=== PATIENT | male | born 1955 | race African-American/Black ===

== ENCOUNTER 2018-12-18 15:39 | Inpatient (IN) | payer OTHER ==
[2018-12-18 17:12] VITALS: BMI 27.8
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
[2018-12-18] MEDS ORDERED: IBUPROFEN 400 MG TABLET (FP) PO PRN (19:19)
[2018-12-18] MEDS ORDERED: hydrOXYzine PAMOATE 25 MG CAPSULE (FP) PO PRN (19:19)
[2018-12-18] MEDS ORDERED: diazePAM 5 MG TABLET PO PRN (19:19)
[2018-12-18] MEDS ORDERED: ACETAMINOPHEN 325 MG TABLET (FP) PO PRN ×2 (19:19)
[2018-12-18] MEDS ORDERED: MELATONIN 5 MG TABLETS PO PRN (19:19)
[2018-12-18] MEDS ORDERED: BISMUTH SUBSALICYLATE 524 MG/30 ML UD PO PRN (19:19)
[2018-12-18] MEDS ORDERED: MAG HYDROX/AL HYDROX/SIMETH 30 ML UNIT-DOSE CUP PO PRN (19:19)
[2018-12-18] MEDS ORDERED: MAGNESIUM CITRATE 300 ML BOTTLE PO PRN (19:19)
[2018-12-18] MEDS ORDERED: MENTHOL/PHENOL 1 EACH UD MM PRN (19:19)
[2018-12-18] MEDS ORDERED: MAGNESIUM HYDROX 2400MG/30ML ORAL SUSPENSION 30 ML CUP PO PRN (19:19)
[2018-12-18] MEDS: diazePAM 5 MG TABLET PO SCH (22:49)
[2018-12-18] MEDS: THIAMINE HCL 100 MG TABLET (FP) PO SCH (22:49)
[2018-12-19] MEDS: diazePAM 5 MG TABLET PO SCH ×3 (06:24→23:10)
[2018-12-19] MEDS: PRENATAL VITAMINS W/ FOLIC ACID TABLET (FP) PO SCH (10:58)
[2018-12-19 11:41] LABS: HEMATOCRIT 46.8 % (35.4-49); MCH 29.2 pg (25.7-33.7); MCHC 32.1 g/dl (32.0-35.9); MEAN CELL VOLUME 90.8 fl (80-96); MEAN PLT VOLUME 10.1 fl (7.5-11.1); PLATELET COUNT 155 K/MM3 (134-434); RBC 5.16 M/mm3 (4.00-5.60); RDW 15.3 % (11.9-15.9); WHITE BLOOD COUNT 2.8 K/mm3 (4.0-10.0)
[2018-12-19 11:42] LABS: ALBUMIN 3.7 g/dl (3.4-5.0); BILIRUBIN,TOTAL 0.4 mg/dL (0.2-1); CALCIUM 8.6 mg/dL (8.5-10.1); CREATININE 1.3 mg/dL (0.55-1.3); TOT PROT 6.9 g/dl (6.4-8.2)
--- NOTE | 2018-12-19 15:12 | PN ---
S CIWA - CIWA Score Nausea/Vomitin-No Nausea/No Vomiting Muscle Tremors: None Anxiety: 2 Agitation: 1-Slight > Activity Paroxysmal Sweats: 3 Orientation: 0-Oriented Tacttile Disturbances: 0-None Auditory Disturbances: 3-Moderate Harsh/Frighten Visual Disturbances: 2-Mild Sensitivity Headache: 0-None Present CIWA-Ar Total Score: 11 BHS Progress Note (SOAP) Subjective: Fatigue, Anxious, Sweating. Objective: PATIENT A & O X 3, OBSERVED AMBULATING ON UNIT UNASSISTED. IN NO ACUTE DISTRESS. 12/19/18 15:11 Vital Signs Temperature 96.9 F L 12/19/18 10:24 Pulse Rate 71 12/19/18 10:24 Respiratory Rate 20 12/19/18 10:24 Blood Pressure 128/84 12/19/18 10:24 O2 Sat by Pulse Oximetry (%) Laboratory Tests 12/19/18 12/19/18 12/19/18 08:00 08:00 08:00 WBC 2.8 L RBC 5.16 Hgb 15.0 Hct 46.8 MCV 90.8 MCH 29.2 MCHC 32.1 RDW 15.3 D Plt Count 155 D MPV 10.1 Sodium 142 Potassium 4.0 Chloride 108 H Carbon Dioxide 25 Anion Gap 9 BUN 11 Creatinine 1.3 Est GFR (CKD-EPI)AfAm 66.83 Est GFR (CKD-EPI)NonAf 57.66 Random Glucose 128 H Calcium 8.6 Total Bilirubin 0.4 AST 24 ALT 26 Alkaline Phosphatase 46 Total Protein 6.9 Albumin 3.7 RPR Titer Nonreactive LABS NOTED. Assessment: 12/19/18 15:12 WITHDRAWAL SYMPTOMS. LEUKOPENIA. Plan: CONTINUE DETOX.
[2018-12-19] MEDS: NICOTINE POLACRILEX 2 MG GUM BUC PRN (18:55)
[2018-12-19] MEDS: THIAMINE HCL 100 MG TABLET (FP) PO SCH (23:10)
[2018-12-20] MEDS: diazePAM 5 MG TABLET PO SCH ×2 (10:42→22:04)
[2018-12-20] MEDS: NICOTINE POLACRILEX 2 MG GUM BUC PRN (10:43)
[2018-12-20] MEDS: PRENATAL VITAMINS W/ FOLIC ACID TABLET (FP) PO SCH (10:43)
[2018-12-20] MEDS ORDERED: cloNIDine HCL 0.1 MG TABLET PO PRN (11:46)
--- NOTE | 2018-12-20 11:51 | PN ---
[facility] CIWA - CIWA Score Nausea/Vomitin-No Nausea/No Vomiting Muscle Tremors: 2 Anxiety: 2 Agitation: 2 Paroxysmal Sweats: No Perspiration Orientation: 0-Oriented Tacttile Disturbances: 0-None Auditory Disturbances: 0-None Visual Disturbances: 0-None Headache: 1-Very Mild CIWA-Ar Total Score: 7 S Progress Note (SOAP) Subjective: feeling ok today social with peers in day room and hallway fluctuating bp denies taking anti hypertensant at home discuss alcohol related bp elevation encourage the patient monitoring bp at home and follow up with [facility] Objective: 12/20/18 11:51 Vital Signs Temperature 96.3 F L 12/20/18 09:43 Pulse Rate 66 12/20/18 09:43 Respiratory Rate 18 12/20/18 09:43 Blood Pressure 175/95 H 12/20/18 09:43 O2 Sat by Pulse Oximetry (%) Laboratory Last Values WBC 2.8 K/mm3 (4.0-10.0) L 12/19/18 08:00 RBC 5.16 M/mm3 (4.00-5.60) 12/19/18 08:00 Hgb 15.0 GM/dL (11.7-16.9) 12/19/18 08:00 Hct 46.8 % (35.4-49) 12/19/18 08:00 MCV 90.8 fl (80-96) 12/19/18 08:00 MCH 29.2 pg (25.7-33.7) 12/19/18 08:00 MCHC 32.1 g/dl (32.0-35.9) 12/19/18 08:00 RDW 15.3 % (11.9-15.9) D 12/19/18 08:00 Plt Count 155 K/MM3 (134-434) D 12/19/18 08:00 MPV 10.1 fl (7.5-11.1) 12/19/18 08:00 Sodium 142 mmol/L (136-145) 12/19/18 08:00 Potassium 4.0 mmol/L (3.5-5.1) 12/19/18 08:00 Chloride 108 mmol/L (98-107) H 12/19/18 08:00 Carbon Dioxide 25 mmol/L (21-32) 12/19/18 08:00 Anion Gap 9 MMOL/L (8-16) 12/19/18 08:00 BUN 11 mg/dL (7-18) 12/19/18 08:00 Creatinine 1.3 mg/dL (0.55-1.3) 12/19/18 08:00 Est GFR (CKD-EPI)AfAm 66.83 12/19/18 08:00 Est GFR (CKD-EPI)NonAf 57.66 12/19/18 08:00 Random Glucose 128 mg/dL (74-106) H 12/19/18 08:00 Calcium 8.6 mg/dL (8.5-10.1) 12/19/18 08:00 Total Bilirubin 0.4 mg/dL (0.2-1) 12/19/18 08:00 AST 24 U/L (15-37) 12/19/18 08:00 ALT 26 U/L (13-61) 12/19/18 08:00 Alkaline Phosphatase 46 U/L (45-117) 12/19/18 08:00 Total Protein 6.9 g/dl (6.4-8.2) 12/19/18 08:00 Albumin 3.7 g/dl (3.4-5.0) 12/19/18 08:00 RPR Titer Nonreactive (NONREACTIVE) 12/19/18 08:00 12/20/18 11:52 lab oted low wbc bp elevation Assessment: 12/20/18 11:52 alcohol withdrawal sx hypertension low wbc 12/20/18 11:55 Plan: continue detox report long history of wbc below normal patient agrees to consider hiv test
[2018-12-20] MEDS: amLODIPine BESYLATE 10 MG TABLET (FP) PO SCH (13:31)
[2018-12-20] MEDS: THIAMINE HCL 100 MG TABLET (FP) PO SCH (22:04)
[2018-12-21] MEDS ORDERED: diazePAM 5 MG TABLET PO SCH (06:00)
[2018-12-21 09:05] VITALS: BP 139/74; PULSE 87; TEMP 97.3
[2018-12-21] MEDS: amLODIPine BESYLATE 10 MG TABLET (FP) PO SCH (09:43)
[2018-12-21] MEDS: PRENATAL VITAMINS W/ FOLIC ACID TABLET (FP) PO SCH (09:43)
--- NOTE | 2018-12-21 15:32 | DS ---
[facility] Detox Discharge Summary Admission Date: 12/18/18 Discharge Date: 12/21/18 - History Present History: Alcohol Dependence Additional Comments: 63 years old male admitted on 12/18/18 for alcohol withdrawal stabilization [facility] Pertinent Past History: bring in medication list and lab report to follow up appointment - Physical Exam Results Vital Signs: Vital Signs Temperature 97.3 F L 12/21/18 09:04 Pulse Rate 87 12/21/18 09:04 Respiratory Rate 18 12/21/18 09:04 Blood Pressure 139/74 12/21/18 09:04 O2 Sat by Pulse Oximetry (%) Pertinent Admission Physical Exam Findings: alcohol withdrawal sx Laboratory Last Values WBC 2.8 K/mm3 (4.0-10.0) L 12/19/18 08:00 RBC 5.16 M/mm3 (4.00-5.60) 12/19/18 08:00 Hgb 15.0 GM/dL (11.7-16.9) 12/19/18 08:00 Hct 46.8 % (35.4-49) 12/19/18 08:00 MCV 90.8 fl (80-96) 12/19/18 08:00 MCH 29.2 pg (25.7-33.7) 12/19/18 08:00 MCHC 32.1 g/dl (32.0-35.9) 12/19/18 08:00 RDW 15.3 % (11.9-15.9) D 12/19/18 08:00 Plt Count 155 K/MM3 (134-434) D 12/19/18 08:00 MPV 10.1 fl (7.5-11.1) 12/19/18 08:00 Sodium 142 mmol/L (136-145) 12/19/18 08:00 Potassium 4.0 mmol/L (3.5-5.1) 12/19/18 08:00 Chloride 108 mmol/L (98-107) H 12/19/18 08:00 Carbon Dioxide 25 mmol/L (21-32) 12/19/18 08:00 Anion Gap 9 MMOL/L (8-16) 12/19/18 08:00 BUN 11 mg/dL (7-18) 12/19/18 08:00 Creatinine 1.3 mg/dL (0.55-1.3) 12/19/18 08:00 Est GFR (CKD-EPI)AfAm 66.83 12/19/18 08:00 Est GFR (CKD-EPI)NonAf 57.66 12/19/18 08:00 Random Glucose 128 mg/dL (74-106) H 12/19/18 08:00 Calcium 8.6 mg/dL (8.5-10.1) 12/19/18 08:00 Total Bilirubin 0.4 mg/dL (0.2-1) 12/19/18 08:00 AST 24 U/L (15-37) 12/19/18 08:00 ALT 26 U/L (13-61) 12/19/18 08:00 Alkaline Phosphatase 46 U/L (45-117) 12/19/18 08:00 Total Protein 6.9 g/dl (6.4-8.2) 12/19/18 08:00 Albumin 3.7 g/dl (3.4-5.0) 12/19/18 08:00 RPR Titer Nonreactive (NONREACTIVE) 12/19/18 08:00 lab noted long history of low wbc x 40 years - Treatment Hospital Course: Detox Protocol Followed, Detoxed Safely, Responded well, Discharged Condition Good, Rehab Referral Accepted Patient has Accepted a Rehab Referral to: [facility] - Medication Discharge Medications: Ambulatory Orders NK [No Known Home Medication] 12/18/18 - Diagnosis (1) Leukocyte disorder Status: Chronic (2) Alcohol dependence with uncomplicated withdrawal Status: Acute (3) Nicotine dependence Status: Acute Qualifiers: Nicotine product type: cigarettes Substance use status: in withdrawal Qualified Code(s): F17.213 - Nicotine dependence, cigarettes, with withdrawal - AMA Did Patient Leave Against Medical Advice: No
== END 2018-12-21 10:10 | disposition home or self-care (01) | DRG 774 ==
LOC: YASAS 15:39 → Y3N 19:48
PROVIDERS: ADMIT Surgery; ATTEND Surgery
PROC: HZ2ZZZZ Detoxification Services for Substance Abuse Treatment (ICD-10-PCS; principal; 2018-12-18)
DX: F10.230 Alcohol dependence with withdrawal, uncomplicated (principal); F14.20 Cocaine dependence, uncomplicated; F12.10 Cannabis abuse, uncomplicated; F17.213 Nicotine dependence, cigarettes, with withdrawal; I10 Essential (primary) hypertension; D72.819 Decreased white blood cell count, unspecified; Z59.0 Homelessness
CPT/HCPCS: 36415; 80053; 85027; 86593; J0735

== ENCOUNTER 2019-06-20 13:37 | Inpatient (IN) | payer OTHER ==
[2019-06-20 17:34] VITALS: BMI 29.2
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
[2019-06-20] MEDS ORDERED: IBUPROFEN 400 MG TABLET (FP) PO PRN (21:15)
[2019-06-20] MEDS ORDERED: NICOTINE POLACRILEX 2 MG GUM BUC PRN (21:15)
[2019-06-20] MEDS ORDERED: MELATONIN 5 MG TABLETS PO PRN (21:15)
[2019-06-20] MEDS ORDERED: MAG HYDROX/AL HYDROX/SIMETH 30 ML UNIT-DOSE CUP PO PRN (21:15)
[2019-06-20] MEDS ORDERED: ACETAMINOPHEN 325 MG TABLET (FP) PO PRN ×2 (21:15)
[2019-06-20] MEDS ORDERED: MAGNESIUM CITRATE 300 ML BOTTLE PO PRN (21:15)
[2019-06-20] MEDS ORDERED: chlordiazePOXIDE HCL 10 MG CAPSULE PO PRN (21:15)
[2019-06-20] MEDS ORDERED: METHOCARBAMOL 500 MG TABLET PO PRN (21:15)
[2019-06-20] MEDS ORDERED: MENTHOL/PHENOL 1 EACH UD MM PRN (21:15)
[2019-06-20] MEDS ORDERED: MAGNESIUM HYDROX 2400MG/30ML ORAL SUSPENSION 30 ML CUP PO PRN (21:15)
[2019-06-20] MEDS ORDERED: hydrOXYzine PAMOATE 25 MG CAPSULE (FP) PO PRN (21:15)
[2019-06-20] MEDS ORDERED: BISMUTH SUBSALICYLATE 524 MG/30 ML UD PO PRN (21:15)
[2019-06-20] MEDS: chlordiazePOXIDE HCL 25 MG CAPSULE PO SCH (22:51)
[2019-06-20] MEDS: THIAMINE HCL 100 MG TABLET (FP) PO SCH (22:51)
[2019-06-21] MEDS: chlordiazePOXIDE HCL 25 MG CAPSULE PO SCH ×3 (06:19→22:33)
[2019-06-21 09:42] LABS: HEMATOCRIT 40.8 % (35.4-49); HEMOGLOBIN 13.3 GM/dL (11.7-16.9); MCH 29.3 pg (25.7-33.7); MCHC 32.4 g/dl (32.0-35.9); MEAN CELL VOLUME 90.4 fl (80-96); MEAN PLT VOLUME 9.3 fl (7.5-11.1); PLATELET COUNT 119 K/MM3 (134-434); RBC 4.52 M/mm3 (4.00-5.60); RDW 14.1 % (11.9-15.9); WHITE BLOOD COUNT 2.6 K/mm3 (4.0-10.0)
[2019-06-21] MEDS ORDERED: NICOTINE 14 MG/24 HOURS TOPICAL PATCH TD SCH (10:00)
[2019-06-21] MEDS ORDERED: PRENATAL VITAMINS W/ FOLIC ACID TABLET (FP) PO SCH (10:00)
[2019-06-21 10:01] LABS: ALBUMIN 3.2 g/dl (3.4-5.0); BILIRUBIN,TOTAL 0.4 mg/dL (0.2-1); BLOOD UREA NITROGEN 13.2 mg/dL (7-18); CALCIUM 8.4 mg/dL (8.5-10.1); CREATININE 1.2 mg/dL (0.55-1.3); POTASSIUM 3.9 mmol/L (3.5-5.1); TOT PROT 5.9 g/dl (6.4-8.2)
--- NOTE | 2019-06-21 10:18 | EKG ---
Test Reason : Blood Pressure : / mmHG Vent. Rate : 067 BPM Atrial Rate : 067 BPM P-R Int : 156 ms QRS Dur : 080 ms QT Int : 420 ms P-R-T Axes : 077 -57 -37 degrees QTc Int : 443 ms NORMAL SINUS RHYTHM LEFT ANTERIOR FASCICULAR BLOCK MODERATE VOLTAGE CRITERIA FOR LVH, MAY BE NORMAL VARIANT T WAVE ABNORMALITY, CONSIDER INFERIOR ISCHEMIA ABNORMAL ECG NO PREVIOUS ECGS AVAILABLE Confirmed by DOUG RODRIGUEZ, JUVENAL ([id number]) on 06/21/2019 10:18:28 AM Referred By: Confirmed By:JUVENAL CAMACHO MD
[2019-06-21] MEDS: AMMONIUM LACTATE 12% LOTION 225 GM BOTTLE TP SCH ×2 (11:00→22:33)
--- NOTE | 2019-06-21 12:26 | PN ---
S CIWA - CIWA Score Nausea/Vomitin-Mild Nausea/No Vomiting Muscle Tremors: 2 Anxiety: 2 Agitation: 2 Paroxysmal Sweats: 1-Minimal Palms Moist Orientation: 0-Oriented Tacttile Disturbances: 1-Very Mild Itch/Numbness Auditory Disturbances: 0-None Visual Disturbances: 0-None Headache: 2-Mild CIWA-Ar Total Score: 11 BHS Progress Note (SOAP) Subjective: alert,irritable,anxious,interrupted sleep,tremor,pain in the body,dry skin, tinea pedis ithing Objective: 06/21/19 12:24 Vital Signs Temperature 97.7 F 06/21/19 09:43 Pulse Rate 69 06/21/19 09:43 Respiratory Rate 18 06/21/19 09:43 Blood Pressure 117/74 06/21/19 09:43 O2 Sat by Pulse Oximetry (%) Laboratory Last Values WBC 2.6 K/mm3 (4.0-10.0) L 06/21/19 07:50 RBC 4.52 M/mm3 (4.00-5.60) 06/21/19 07:50 Hgb 13.3 GM/dL (11.7-16.9) 06/21/19 07:50 Hct 40.8 % (35.4-49) 06/21/19 07:50 MCV 90.4 fl (80-96) 06/21/19 07:50 MCH 29.3 pg (25.7-33.7) 06/21/19 07:50 MCHC 32.4 g/dl (32.0-35.9) 06/21/19 07:50 RDW 14.1 % (11.9-15.9) 06/21/19 07:50 Plt Count 119 K/MM3 (134-434) L D 06/21/19 07:50 MPV 9.3 fl (7.5-11.1) 06/21/19 07:50 Sodium 141 mmol/L (136-145) 06/21/19 07:50 Potassium 3.9 mmol/L (3.5-5.1) 06/21/19 07:50 Chloride 109 mmol/L (98-107) H 06/21/19 07:50 Carbon Dioxide 27 mmol/L (21-32) 06/21/19 07:50 Anion Gap 5 MMOL/L (8-16) L 06/21/19 07:50 BUN 13.2 mg/dL (7-18) 06/21/19 07:50 Creatinine 1.2 mg/dL (0.55-1.3) 06/21/19 07:50 Est GFR (CKD-EPI)AfAm 73.62 06/21/19 07:50 Est GFR (CKD-EPI)NonAf 63.52 06/21/19 07:50 Random Glucose 99 mg/dL (74-106) 06/21/19 07:50 Calcium 8.4 mg/dL (8.5-10.1) L 06/21/19 07:50 Total Bilirubin 0.4 mg/dL (0.2-1) 06/21/19 07:50 AST 25 U/L (15-37) 06/21/19 07:50 ALT 24 U/L (13-61) 06/21/19 07:50 Alkaline Phosphatase 39 U/L (45-117) L 06/21/19 07:50 Total Protein 5.9 g/dl (6.4-8.2) L 06/21/19 07:50 Albumin 3.2 g/dl (3.4-5.0) L 06/21/19 07:50 RPR Titer Nonreactive (NONREACTIVE) 06/21/19 07:50 Assessment: 06/21/19 12:25 withdrawal symptom Plan: continue detox librium regimen,wbc is 2.600,will repeat cbc in am
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
[2019-06-21] MEDS: TOLNAFTATE 1% CREAM 15 GM TUBE TP SCH ×2 (14:34→22:33)
[2019-06-21] MEDS ORDERED: SUVOREXANT 10 MG TABLET PO PRN (22:00)
[2019-06-21] MEDS: THIAMINE HCL 100 MG TABLET (FP) PO SCH (22:33)
[2019-06-22] MEDS ORDERED: chlordiazePOXIDE 5 MG CAPSULE PO SCH (05:00)
[2019-06-22 06:20] VITALS: BP 133/80; PULSE 58; TEMP 97.3
[2019-06-22 09:37] LABS: HEMOGLOBIN 14.9 GM/dL (11.7-16.9); MCH 29.8 pg (25.7-33.7); MCHC 32.5 g/dl (32.0-35.9); MEAN CELL VOLUME 91.6 fl (80-96); MEAN PLT VOLUME 9.8 fl (7.5-11.1); PLATELET COUNT 127 K/MM3 (134-434); RBC 5.02 M/mm3 (4.00-5.60); RDW 14.4 % (11.9-15.9); WHITE BLOOD COUNT 3.3 K/mm3 (4.0-10.0)
--- NOTE | 2019-06-22 09:49 | PN ---
S Progress Note Note: This morning be was abrupt, cursing, putting his hands over the nursing station , unable to be re-directed. Pt became loud, disrespectful and threatening. security was initiated. security escorted pt off the unit.
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
[2019-06-23] MEDS ORDERED: chlordiazePOXIDE HCL 10 MG CAPSULE PO PRN
[2019-06-23] MEDS ORDERED: chlordiazePOXIDE HCL 10 MG CAPSULE PO SCH (05:00)
[2019-06-24] MEDS ORDERED: chlordiazePOXIDE HCL 10 MG CAPSULE PO ONE (05:00)
== END 2019-06-22 08:19 | disposition left against medical advice (07) | DRG 770 ==
LOC: YASAS 13:37 → Y6N 21:23
PROVIDERS: ADMIT Allergy & Immunology; ATTEND Allergy & Immunology
PROC: HZ2ZZZZ Detoxification Services for Substance Abuse Treatment (ICD-10-PCS; principal; 2019-06-20)
DX: F10.230 Alcohol dependence with withdrawal, uncomplicated (principal); F12.10 Cannabis abuse, uncomplicated; F17.213 Nicotine dependence, cigarettes, with withdrawal; F19.282 Other psychoactive substance dependence with psychoactive substance-induced sleep disorder; F39 Unspecified mood [affective] disorder; G40.909 Epilepsy, unspecified, not intractable, without status epilepticus; D72.819 Decreased white blood cell count, unspecified; Z87.828 Personal history of other (healed) physical injury and trauma; Z98.890 Other specified postprocedural states; Z59.0 Homelessness
CPT/HCPCS: 36415; 80053; 85027; 86593; 93005; 93010